=== PATIENT | female | born 1970 | race Caucasian/White ===

== ENCOUNTER → 2021-04-02 | Outpatient (CLI) | payer SELFPAY | LOC: MC.RAD 11:35 | DX: Z12.31 Encounter for screening mammogram for malignant neoplasm of breast (principal) ==

== ENCOUNTER 2022-11-13 08:25 | Day surgery (SDC) | payer BC ==
[~2022-11-13] VITALS: Ht 162.6 cm; Wt 139.1 kg
[2022-11-13 09:03] VITALS: BP 142/89; PULSE 84; TEMP 98.1
[2022-11-13] MEDS ORDERED: PRISTIQ100 MG PO (09:06)
[2022-11-13] MEDS ORDERED: LEVOXYL0.125 MG PO (09:07)
[2022-11-13] MEDS ORDERED: TOPROL XL 25MG25 MG PO (09:08)
[2022-11-13] MEDS ORDERED: HCTZ 25MG TAB25 MG PO (09:08)
[2022-11-13] MEDS ORDERED: COZAAR 50MG50 MG/TAB PO (09:09)
[2022-11-13] MEDS ORDERED: LO LOESTRIN FE1 TAB PO (09:09)
[2022-11-13 10:30] VITALS: BP 147/84; PULSE 75; TEMP 98.2
[2022-11-13 10:45] VITALS: BP 136/79; PULSE 72
[2022-11-13 11:00] VITALS: BP 131/80; PULSE 72
--- NOTE | 2022-11-13 15:12 | NUR ---
[id number] PT TO [facility]ERY BAY 2 FROM [facility] S/P COLONOSCOPY/POLYPECTOMY PLACED ON MONITOR, VSS ON RA RECEIVED REPORT AND ASSUMED CARE OF PT FROM ENDO RN AT BEDSIDE MD IN TO SPEAK WITH PT/FAMILY; TOLERATING PO WELL PT HAS REMAINED A&O, NAD, VSS ON RA, TOLERATING PO, IS WITHOUT SIGNIFICANT COMPLAINT, WITH STEADY GAIT THRU OUT ENDO STAY IV D/C'D. D/C INSTRUCTIONS, ANY FOLLOW UP REVIEWED AND HANDED TO PT. ALL QUESTIONS AND CONCERNS ADDRESSED TO PT SATISFACTION. TAKEN TO EXIT VIA W/C WITH ALL BELONGINGS AND PAPERWORK IN HAND, ASSISTED INTO PASSENGER SEAT OF POV. SPOUSE TO DRIVE HOME.
== END 2022-11-13 12:00 | disposition home or self-care (01) ==
LOC: SDCO 08:25
DX: Z12.11 Encounter for screening for malignant neoplasm of colon (principal); D12.3 Benign neoplasm of transverse colon; K63.5 Polyp of colon; G47.33 Obstructive sleep apnea (adult) (pediatric); Z99.81 Dependence on supplemental oxygen
CPT/HCPCS: J2704; J7120